=== PATIENT | female | born 1980 | race Two or more races ===

== ENCOUNTER 2018-12-02 18:27 | Inpatient (IN) | payer OTHER ==
[2018-12-02 19:47] VITALS: BMI 27.1
[2018-12-02 20:42] LABS: BASO # 0.1 K/uL (0.0-0.2); BASO % 0.6 % (0.0-2.0); EOS # 0.1 K/uL (0.0-0.7); EOS % 0.6 % (0.0-4.0); HEMOGLOBIN 11.9 g/dL (12.0-16.0); LYMPH # 2.1 K/uL (1.0-4.3); LYMPH % 19.2 % (20.0-40.0); MEAN CELL VOLUME 91.1 fl (81.0-99.0); MEAN CORPUSCULAR HEMOGLOBIN 31.4 pg (27.0-31.0); MEAN CORPUSCULAR HGB CONC 34.5 g/dL (33.0-37.0); MEAN PLATELET VOLUME 8.8 fl (7.2-11.7); MONO # 0.7 K/uL (0.0-0.8); MONO % 6.2 % (0.0-10.0); NEUT # 8.2 K/uL (1.8-7.0); NEUT % 73.4 % (50.0-75.0); RBC 3.79 Mil/uL (3.80-5.20); RED CELL DISTRIBUTION WIDTH 12.7 % (11.5-14.5); WHITE BLOOD COUNT 11.1 K/uL (4.8-10.8)
[2018-12-02 20:45] VITALS: RESP 18
--- NOTE | 2018-12-02 21:24 | OBADHP ---
Datetime: 12/02/2018 21:17 Admit Comment, IP Provider: Patient is a @ 39.6 wks for induction. Patient has a history of AMA, otherwise no other risk factors, no antepartum history, no medical problems, no allergies, no me dication except vitamins. VE = 2/60/-3 FHR = 150 mod joo, +accels, no decels TOCO = irritability A/P 1. Will start Pitocin for augmentation 2. CEFM and TOCO 3. Patient declined anesthesia at this time Pelvic Type - PN: Adequate Extremities - PN: Normal Abdomen - PN: Normal Back - PN: Normal Breast - PN: Normal Lungs - PN: Normal Heart - PN: Normal Thyroid - PN: Normal Neurologic - PN: Normal HEENT - PN: Normal General - PN: Normal FHR - Baseline A Provider: 150 Contraction Comments Provider: irritability Vital Signs Provider: Reviewed IP Chief Complaint: Scheduled induction of labor NICHD Variability Prov Fetus A: Moderate 6-25bpm NICHD Accel Fetus A IP Provider: [id number] FHR Category Provider Fetus A: Category I NICHD Decel Fetus A IP Provider: None Dilatation, Provider: 2 Effacement, Provider: 60 Station, Provider: -3 Genitourinary Exam: Normal DTRs - PN: Normal EGA AdmitDate IP: 39.6 IP Adm Impression: Term, intrauterine IP Admit Plan: Admit to unit; Initiate labor protocol
[2018-12-02] MEDS ORDERED: Oxytocin 30 UNIT in NS 500 ml 30 UNITS/500 ML BAG IV ONE (21:28)
[2018-12-02] MEDS: Lactated Ringer's 1,000 ML IV SCH (23:00)
[2018-12-03] MEDS ORDERED: Penicillin G Potassium 5 MU in Sodium Chloride 0.9% 50 ML IVPB ONE (00:43)
[2018-12-03] MEDS ORDERED: Penicillin G 5 Million Unit Vial IVPB ONE (00:56)
[2018-12-03] MEDS: Lactated Ringer's 1,000 ML IV SCH ×4 (05:54→23:00)
--- NOTE | 2018-12-03 14:03 | OBPN ---
Datetime: 12/03/2018 13:58 IP Progress Impression Other: Induction IP Procedures: Sterile Vag Exam IP Progress Plan: Cervical Ripening Membranes, Provider: Intact FHR - Baseline A Provider: 120's IP Progress Note Comment: 38 yo G1 at 40 wks s/p pitocin and misoprostol x 1, now w/ cervidil placed at 1350. Will hold penicillin for GBS prophylaxis for now FHT reassuring NICHD Accel Fetus A IP Provider: 15X15 FHR Category Provider Fetus A: Category I NICHD Variability Prov Fetus A: Moderate 6-25bpm Dilatation, Provider: 2 Effacement, Provider: 70 Station, Provider: -2 NICHD Decel Fetus A IP Provider: None Datetime: 12/02/2018 21:17 Contraction Comments Provider: irritability Vital Signs Provider: Reviewed
[2018-12-03] MEDS ORDERED: Nalbuphine HCL 10 mg/ml Ampule IVP PRN (19:27)
[2018-12-04] MEDS: Lactated Ringer's 1,000 ML IV SCH ×4 (02:48→12:50)
[2018-12-04] MEDS ORDERED: Oxytocin 30 UNIT in NS 500 ml 30 UNITS/500 ML BAG IV ONE ×4 (03:00→17:11)
[2018-12-04] MEDS ORDERED: Penicillin G Potassium 5 MU in Sodium Chloride 0.9% 50 ML IVPB ONE (09:00)
[2018-12-04] MEDS ORDERED: Penicillin G 5 Million Unit Vial IVPB ONE (09:06)
--- NOTE | 2018-12-04 09:12 | OBPN ---
Datetime: 12/04/2018 08:30 IP Progress Impression Other: Latent phase of labor IP Progress Impression: Reassuring heart rate IP Progress Plan: Continue present management; Antibiotic therapy; Anticipate Vaginal Delivery Pool Provider: Negative Membranes, Provider: Intact Contraction Comments Provider: occ FHR - Baseline A Provider: 120 Presentation-Admit: Vertex IP Progress Note Comment: OB Hospitalist on-call - signout rec'd She was admitted for IUGR started on Pitocin, then given Cytotec and Cervidil...this morning, she was given Cytotec one dose. She feels hungry. No pain. +FM A; IUP at term/IUGR/GBS+/latent phase of labor PLAN: will allow to eat breakfast...will give PCN IV...re-examine to start Pitocin/possible AROM Condition and plan were explained. Her and her 's questions answered. NICHD Accel Fetus A IP Provider: 15X15 FHR Category Provider Fetus A: Category I NICHD Variability Prov Fetus A: Moderate 6-25bpm Dilatation, Provider: 3-4 Effacement, Provider: 50 Station, Provider: -2 NICHD Decel Fetus A IP Provider: None
[2018-12-04] MEDS ORDERED: Fentanyl/Bupivacaine HCl 250 ML EPI ONE (11:03)
[2018-12-04] MEDS ORDERED: Lactated Ringer's 1,000 ML IV ONE (11:06)
--- NOTE | 2018-12-04 11:17 | OBPN ---
Datetime: 12/04/2018 11:05 IP Progress Impression: Reassuring heart rate IP Procedures: Artificial ROM IP Progress Plan: Augmentation; Anesthesia consult; Anticipate Vaginal Delivery Pool Provider: Positive Membranes, Provider: Ruptured Amniotic Fluid Color, Provider: Clear Contraction Comments Provider: occ FHR - Baseline A Provider: 130 IP Progress Note Comment: Sheate breakfast, feels better ngozi after SSE. She feels occ CTX 4/10 A: latent phase of labor/GBS+ PLAN AROM clear fluid (augmentation)...start pitocin...given first dose of PCN...pain management d isucssed NICHD Accel Fetus A IP Provider: 15X15 FHR Category Provider Fetus A: Category I NICHD Variability Prov Fetus A: Moderate 6-25bpm Dilatation, Provider: 3-4 Effacement, Provider: 50 Station, Provider: -2 NICHD Decel Fetus A IP Provider: None
[2018-12-04] MEDS ORDERED: Bupivacaine HCl 0.5% PF (30 ml) Inj ONE (11:38)
[2018-12-04] MEDS ORDERED: Lidocaine 1% Inj (20ml) ONE (16:03)
[2018-12-04] MEDS ORDERED: OXYTOCIN/0.9 % NS 20 UNIT/1,000 ML BAG IV ONE (17:06)
[2018-12-04] MEDS ORDERED: Oxycodone/Acetaminophen 5/325 mg Tab PO PRN ×4 (20:42→21:52)
[2018-12-04] MEDS ORDERED: Benzocaine/Menthol SPRAY TOP PRN ×2 (20:42→21:52)
[2018-12-05 07:52] LABS: BASO # 0.1 K/uL (0.0-0.2); BASO % 0.3 % (0.0-2.0); EOS # 0.1 K/uL (0.0-0.7); EOS % 0.4 % (0.0-4.0); HEMOGLOBIN 10.5 g/dL (12.0-16.0); LYMPH % 12.1 % (20.0-40.0); MEAN CELL VOLUME 93.1 fl (81.0-99.0); MEAN CORPUSCULAR HEMOGLOBIN 31.3 pg (27.0-31.0); MEAN CORPUSCULAR HGB CONC 33.6 g/dL (33.0-37.0); MEAN PLATELET VOLUME 9.1 fl (7.2-11.7); MONO % 5.8 % (0.0-10.0); NEUT # 13.7 K/uL (1.8-7.0); NEUT % 81.4 % (50.0-75.0); RBC 3.37 Mil/uL (3.80-5.20); RED CELL DISTRIBUTION WIDTH 12.8 % (11.5-14.5); WHITE BLOOD COUNT 16.8 K/uL (4.8-10.8)
--- NOTE | 2018-12-05 08:30 | OBDS ---
DELIVERY PERSONNEL Delivery Doctor: Daniela Waddell DO Horse Trekking Guide: Cora CUI/ Elvis CUI Anesthesiologist: Paola MATERNAL INFORMATION Delivery Anesthesia: Local; Epidural Medications in Delivery: Pitocin Estimated Blood Loss (ml): 200 Placenta Cultured: No Maternal Complications: None Provider Comments: Over intact perineum, of live infant. Infant was crying spontaneously. Afte r delay, cord was clamped and cut. was placed on mother's chest. 9,9. Placenta was de livered intact spontaneously. EBL 200cc. LABOR SUMMARY EDC: 12/03/2018 00:00 No. Babies in Womb: 1 Attempted: No Labor Anesthesia: Epidural LABOR INFORMATION Reason for Induction: Intrauterine Growth Retardation; Other Reason for Induction Other: AMA Onset of Labor: 12/04/2018 12:15 Complete Dilatation: 12/04/2018 17:35 Cervical Ripening Agents: Cervidil; Cytotec @ Oxytocin: Induction Group B Beta Strep: Positive Antibiotics # of Doses: 6 Antibiotics Time of Last Dose: 1753 Steroids Given: None Reason Steroids Not Administered: Not Applicable MEMBRANES Membranes Rupture Method: Artificial Rupture of Membranes: 12/04/2018 11:00 Length of Rupture (hrs): 9.32 Amniotic Fluid Color: Clear Amniotic Fluid Amount: Small STAGES OF LABOR Stage 1 hrs: 5 Stage 1 min: 20 Stage 2 hrs: 2 Stage 2 min: 44 Stage 3 hrs: 0 Stage 3 min: 14 Total Time in Labor hrs: 8 Total Time in Labor min: 18 VAGINAL DELIVERY Episiotomy: None Laceration Extension: First Degree Laceration Type: Perineal Laceration Repair Note: Lidocaine was infiltrated 2-3cc. Using 2.0 Vicryl Rapide suture, first degr ee laceration was repaired with interrupted sutures x 3. Hemostasis assured. Initial Vag Sponge Count: 5 Final Vag Sponge Count: 5 Initial Vag Sharps Count: 1 Final Vag Sharps Count: 1 Sponge Count Correct: Yes Sharps Count Correct: Yes BABY A INFORMATION Infant Delivery Date/Time: 12/04/2018 20:19 Method of Delivery: Vaginal Born in Route : No : N/A Forceps: N/A Vacuum Extraction: N/A Shoulder Dystocia : No SHOULDER DYSTOCIA BABY A Delivery Date/Time: 12/04/2018 20:19 PRESENTATION/POSITION BABY A Presentation: Cephalic Cephalic Presentation: Vertex Breech Presentation: N/A PLACENTA INFORMATION BABY A Placenta Delivery Time : 12/04/2018 20:33 Placenta Method of Delivery: Spontaneous Placenta Status: Delivered SCORES BABY A Heart Rate 1 min: >100 bpm Resp Effort 1 min: Good Cry Reflex Irritability 1 min: Cough or Sneeze or Pulls Away Muscle Tone 1 min: Active Motion Color 1 min: Body [place], Extremities Blue Resuscitation Effort 1 min: Tactile Stimulation SCORE 1 MIN: 9 Heart Rate 5 min: >100 bpm Resp Effort 5 min: Good Cry Reflex Irritability 5 min: Cough or Sneeze or Pulls Away Muscle Tone 5 min: Active Motion Color 5 min: Body [place], Extremities Blue Resuscitation Effort 5 min: N/A SCORE 5 MIN: 9 INFORMATION BABY A Gestational Age at Delivery: 40.1 Gestational Status: Term Infant Outcome : Liveborn Condition : Stable Sex: Female IDENTIFICATION/MEDS BABY A ID Band Number: [id number] ID Band Location: Left Leg; Left Arm WEIGHT/LENGTH BABY A Infant Birthweight (gms): 3140 Weight (lb): 6 Infant Weight (oz): 15 CORD INFORMATION BABY A No. Cord Vessels: 3 Nuchal Cord : N/A Cord Blood Taken: Yes Suction: Mouth; Nose ASSESSMENT BABY A Complications: None Physical Findings at Delivery: Within Normal Limits Infant Respirations: Appears Normal Skin Care Instructor/ALS Called : No Care By: Cora CUI Transferred To: Remains with Mother
[2018-12-05] MEDS: Multivitamin With Minerals Tab PO SCH (08:51)
[2018-12-05] MEDS ORDERED: Multivitamin With Minerals Tab PO SCH (09:00)
[2018-12-06] MEDS: Multivitamin With Minerals Tab PO SCH (08:13)
[2018-12-06 18:09] VITALS: BP 107/66; PULSE 65; TEMP 98.3; O2SAT 99
== END 2018-12-06 12:20 | disposition home or self-care (01) | DRG 807 ==
LOC: H.EROB2 18:27 → H.L&D 19:48 → H.OB/GYN 12-04 22:15
PROVIDERS: ADMIT Obstetrics & Gynecology; ATTEND Obstetrics & Gynecology
PROC: 10E0XZZ Delivery of Products of Conception, External Approach (ICD-10-PCS; principal; 2018-12-04)
PROC: 0HQ9XZZ Repair Perineum Skin, External Approach (ICD-10-PCS; 2018-12-04)
PROC: 10907ZC Drainage of Amniotic Fluid, Therapeutic from Products of Conception, Via Natural or Artificial Opening (ICD-10-PCS; 2018-12-04)
PROC: 3E0P7VZ Introduction of Hormone into Female Reproductive, Via Natural or Artificial Opening (ICD-10-PCS; 2018-12-04)
DX: O36.5930 Maternal care for other known or suspected poor fetal growth, third trimester, not applicable or unspecified (principal); O62.1 Secondary uterine inertia; O70.0 First degree perineal laceration during delivery; O99.824 Streptococcus B carrier state complicating childbirth; Z37.0 Single live birth; Z3A.39 39 weeks gestation of pregnancy; O09.523 Supervision of elderly multigravida, third trimester